=== PATIENT | male | born 1960 | race Caucasian/White ===

== ENCOUNTER 2023-01-28 10:13 | Inpatient (IN) | payer MEDICARE, OTHER ==
[2023-01-28] VITALS (19 sets, daily range): BP systolic 75–130; BP diastolic 48–100; PULSE 54–102; RESP 16–18; O2SAT 93–100
[~2023-01-28] VITALS: Ht 180.3 cm; Wt 68.0 kg
[~2023-01-28 10:13] MED LIST: etomidate 2mg/ml inj. ONE
[2023-01-28] MEDS ORDERED: normal saline 1000ML IV soln IVB ONE (10:40)
[2023-01-28] MEDS ORDERED: propofol 1000mg/100ml bottle 100 ML IV ONE (10:41)
[2023-01-28] MEDS ORDERED: fentaNYL/PF 50MCG/1 ML 2ML syringe IV ONE (10:45)
[2023-01-28] MEDS ORDERED: levetiracetam inj 1,000 MG in normal saline 100ml IV soln 100 ML IV ONE (10:50)
[2023-01-28 11:03] LABS: BASOPHILS # (AUTO) 0.1 X10'3 (0-0.2); BASOPHILS % (AUTO) 1.1 % (0-1); EOSINOPHILS # (AUTO) 0.8 X10'3 (0-0.9); EOSINOPHILS % (AUTO) 7.8 % (0-6); HEMATOCRIT 39.5 % (42.0-52.0); HEMOGLOBIN 12.7 g/dl (14.0-17.9); LYMPHOCYTES # (AUTO) 4.1 X10'3 (1.1-4.8); LYMPHOCYTES % (AUTO) 41.8 % (21-51); MEAN CORPUSCULAR HEMOGLOBIN 33.4 PG (27.0-31.0); MEAN CORPUSCULAR HGB CONC 32.2 g/dL (33.0-36.5); MEAN CORPUSCULAR VOLUME 103.5 FL (78-98); MEAN PLATELET VOLUME 8.3 FL (7.4-10.4); MONOCYTES # (AUTO) 0.8 X10'3 (0-0.9); MONOCYTES % (AUTO) 8.5 % (2-12); NEUTROPHILS % (AUTO) 40.8 % (42-75); PLATELET COUNT 217 X10'3 (140-440); RED BLOOD COUNT 3.82 X10'6 (4.70-6.10); RED CELL DISTRIBUTION WIDTH 14.6 % (11.5-14.5); WHITE BLOOD COUNT 9.9 X10'3 (4.5-11.0)
[2023-01-28 11:06] LABS: ABG BASE EXCESS -15.6 mmol/L (-2.0-2.0); ABG HCO3 11.5 mmol/L (22.0-26.0); ABG PCO2 (T) 29.8 mmHg (35.0-48.0); ABG PH (T) 7.198 (7.340-7.440); ABG PO2 (T) 217.6 mmHg (75.0-100.0); ALLEN'S TEST POSITIVE; FCOHb 0.1 % (0.0-3.9); FMetHb 0.1 % (0.0-1.5); FO2Hb 98.8 % (94-97); MODE VENT - AC; PATIENT TEMPERATURE 35.5; PEEP 5 cm H2O; RESPIRATORY RATE 16 b/min; TIDAL VOLUME 475 mL; TOTAL HEMOGLOBIN 12.8 G/dl (14.0-17.9)
[2023-01-28 11:12] LABS: ALBUMIN 4.1 G/DL (3.4-5.0); ANION GAP 27 (8-16); BILIRUBIN,TOTAL 0.4 MG/DL (0.1-1.0); BLOOD UREA NITROGEN 14 MG/DL (7-18); BUN/CREATININE RATIO 8.8 (10.0-20.0); CALCIUM 9.1 MG/DL (8.5-10.1); CHLORIDE 100 MMOL/L (99-107); GLUCOSE 233 MG/DL (70-104); POTASSIUM 3.1 MMOL/L (3.5-5.1); SODIUM 139 MMOL/L (135-145); TOTAL PROTEIN 8.2 G/DL (6.4-8.2); eCRCL 49 ML/MIN; eGFR 44 ML/MIN
[2023-01-28 11:13] LABS: ALANINE AMINOTRANSFERASE 85 U/L (12-78); ALKALINE PHOSPHATASE 91 IU/L (46-116); ASPARTATE AMINO TRANSFERASE 127 U/L (10-37)
[2023-01-28 11:32] LABS: TOTAL CARBON DIOXIDE 12.4 MMOL/L (24-32)
[2023-01-28 11:33] LABS: LACTIC SEPSIS 12.8 MMOL/L (0.4-2.0)
[2023-01-28 11:37] LABS: ETHANOL < 10 MG/DL (<10)
--- NOTE | 2023-01-28 11:45 | NUR ---
Ux Consultant at bedside discussing plan of care with patient's sister.
[2023-01-28] MEDS ORDERED: acetaminophen 325mg tablet PO PRN (11:55)
[2023-01-28] MEDS ORDERED: potassium Cl 40MEQ/1/2NS 520ml 520 ML IV PRN (11:55)
[2023-01-28] MEDS ORDERED: magnesium hydroxide 30ml (MOM) UD suspension PO PRN (11:55)
[2023-01-28] MEDS ORDERED: mag hydrox/Alum hydrox/simeth 30ml oral suspension PO PRN (11:55)
[2023-01-28] MEDS ORDERED: dextrose 5%-1/2 normal saline 1,000 ML IV SCH (11:55)
[2023-01-28] MEDS ORDERED: potassium Cl 20 mEq SR tablet PO PRN (11:55)
[2023-01-28] MEDS ORDERED: ondansetron/PF 4mg/2ml inj IV PRN (11:55)
[2023-01-28] MEDS ORDERED: magnesium 2GM in 50ml NS 50 ML IV PRN (11:55)
[2023-01-28] MEDS ORDERED: magnesium 4gm in 100ml NS 100 ML IV PRN (11:55)
[2023-01-28] MEDS ORDERED: magnesium Cl slow-release 64mg tablet PO PRN (11:55)
[2023-01-28] MEDS ORDERED: ipratropium/albuterol 3ml nebule NEB PRN (12:05)
[2023-01-28 12:43] LABS: BILIRUBIN,URINE NEGATIVE (Neg); CLARITY,URINE SLIGHTLY CLOUDY (Clear); COLOR,URINE STRAW (Yellow); GLUCOSE, URINE 100 mg/dl (Neg); KETONES,URINE NEGATIVE (Neg); LEUKOCYTE ESTERASE ,URINE NEGATIVE (Neg); NITRITES, URINE NEGATIVE (Neg); OCCULT BLOOD,URINE SMALL (Neg); PH,URINE 5.5 (4.8-8.0); PROTEIN,URINE 30 mg/dl (Neg); UROBILINOGEN,URINE 0.2 E.U/dL (0.2-1.0)
[2023-01-28 12:52] LABS: SQUAMOUS EPITHELIAL CELL,UR FEW /LPF (FEW); UA COLLECTION TYPE FOLEY CATH
[2023-01-28 12:53] LABS: BACTERIA,URINE FEW /HPF (Neg); FINE GRANULAR CAST 0-3 /LPF (NEGATIVE); RBC,URINE 0-2 /HPF (0-2); WBC,URINE 0-4 /HPF (0-4)
[2023-01-28 12:58] LABS: URINE AMPHETAMINE SCREEN NEGATIVE (Neg); URINE BARBITUATE SCREEN NEGATIVE (Neg); URINE BENZODIAZEPINES SCREEN POSITIVE (Neg); URINE CANNABINOID SCREEN NEGATIVE (Neg); URINE COCAINE SCREEN NEGATIVE (Neg); URINE METHADONE SCREEN NEGATIVE (Neg); URINE OPIATE SCREEN NEGATIVE (Neg); URINE PHENCYCLIDINE SCREEN NEGATIVE (Neg)
[2023-01-28] MEDS: FENTANYL-0.9 % NACL/PF 100 ML IV PRN (13:20)
--- NOTE | 2023-01-28 13:22 | NUR ---
WASTED RSI DRUGS W/ FREEDOM MYERS AT BEDSIDE. 150 MG SUCCINYLCHOLINE WASTED AND 30 MG ETOMIDATE WASTED.
[2023-01-28 13:41] LABS: TRIGLYCERIDES 98 MG/DL (20-135)
[2023-01-28 13:56] LABS: PHENYTOIN (DILANTIN) 1.3 UG/ML (10.0-20.0)
[2023-01-28] MEDS: ipratropium/albuterol 3ml nebule NEB SCH ×2 (15:42→20:48)
[2023-01-28] MEDS ORDERED: normal saline 1000ml 1,000 ML IV ONE (16:15)
[2023-01-28 16:31] LABS: MAGNESIUM 2.3 MG/DL (1.5-2.4); PHOSPHORUS 5.7 MG/DL (2.3-4.5)
[2023-01-28] MEDS: heparin, porcine 5000 units/ml vial SQ SCH (16:45)
[2023-01-28] MEDS ORDERED: ASPI-611 PO (16:58)
[2023-01-28] MEDS ORDERED: KEP500T PO (16:58)
[2023-01-28] MEDS ORDERED: OMEP20CA16 PO (16:58)
[2023-01-28] MEDS ORDERED: ATOR20TA66 PO (16:58)
[2023-01-28] MEDS: phenytoin sod 50mg/ml 2ml vial IV SCH (17:09)
[2023-01-28] MEDS: propofol 1000mg/100ml bottle 100 ML IV SCH (18:13)
--- NOTE | 2023-01-28 18:30 | NUR ---
Patient in room ICU 2039. I have received report from Alex LOJA and had the opportunity to ask questions and assume patient care.
[2023-01-28] MEDS: levetiracetam inj 1,000 MG in normal saline 100ml IV soln 100 ML IV SCH (19:50)
[2023-01-28] MEDS: K and/or MAG REPLACEMENT MC SCH (19:58)
[2023-01-28] MEDS ORDERED: levetiracetam inj 1,000 MG in normal saline 100ml IV soln 90 ML IV SCH (20:00)
[2023-01-28] MEDS ORDERED: levetiracetam inj 1,000 MG in normal saline 100ml IV soln 100 ML IV SCH (20:00)
[2023-01-28] MEDS ORDERED: docusate sod 100mg capsule PO SCH (20:00)
[2023-01-28] MEDS ORDERED: dextrose 50%-water 50ml dispensing syringe IV ONE (20:01)
[2023-01-28] MEDS: Dextrose 10%-water IV solution 1,000 ML IV SCH (21:27)
[2023-01-29] VITALS (41 sets, daily range): BP systolic 91–134; BP diastolic 57–80; PULSE 58–78; RESP 10–25; O2SAT 93–100
[2023-01-29] MEDS: phenytoin sod 50mg/ml 2ml vial IV SCH ×4 (00:14→23:37)
[2023-01-29] MEDS: heparin, porcine 5000 units/ml vial SQ SCH ×4 (00:14→23:37)
[2023-01-29] MEDS: ipratropium/albuterol 3ml nebule NEB SCH ×4 (02:50→20:35)
[2023-01-29 03:08] LABS: ABG BASE EXCESS -3.4 mmol/L (-2.0-2.0); ABG HCO3 20.7 mmol/L (22.0-26.0); ABG OXYGEN SATURATION 97.1 % (94-97); ABG PCO2 (T) 34.4 mmHg (35.0-48.0); ABG PH (T) 7.398 (7.340-7.440); ABG PO2 (T) 95.1 mmHg (75.0-100.0); ALLEN'S TEST POSITIVE; FCOHb 0.2 % (0.0-3.9); FHHb 2.9 % (0.0-5.0); FMetHb 0.3 % (0.0-1.5); FO2Hb 96.6 % (94-97); MODE VENT - prvc; PATIENT TEMPERATURE 37.2; PEEP 5 cm H2O; RESPIRATORY RATE 16 b/min; TIDAL VOLUME 475 mL; TOTAL HEMOGLOBIN 11.6 G/dl (14.0-17.9)
--- NOTE | 2023-01-29 06:11 | NUR ---
Problems reprioritized. Patient report given, questions answered & plan of care reviewed with Christine LOJA.
--- NOTE | 2023-01-29 06:13 | NUR ---
Patient in room ICU 2039. I have received report from Alba LOJA and had the opportunity to ask questions and assume patient care.
[2023-01-29] MEDS: FENTANYL-0.9 % NACL/PF 100 ML IV PRN (06:52)
[2023-01-29] MEDS: propofol 1000mg/100ml bottle 100 ML IV SCH ×2 (06:58→12:06)
[2023-01-29] MEDS: levetiracetam inj 1,000 MG in normal saline 100ml IV soln 100 ML IV SCH ×2 (07:48→19:54)
[2023-01-29] MEDS: K and/or MAG REPLACEMENT MC SCH ×2 (08:00→19:55)
[2023-01-29] MEDS: docusate sodium 100mg/10ml UD cup PO SCH ×2 (09:29→19:54)
[2023-01-29 10:06] LABS: BASOPHILS # (AUTO) 0.1 X10'3 (0-0.2); EOSINOPHILS # (AUTO) 0.2 X10'3 (0-0.9); EOSINOPHILS % (AUTO) 3.2 % (0-6); HEMOGLOBIN 11.2 g/dl (14.0-17.9); LYMPHOCYTES % (AUTO) 14.4 % (21-51); MEAN CORPUSCULAR VOLUME 98.9 FL (78-98); MEAN PLATELET VOLUME 7.8 FL (7.4-10.4); MONOCYTES # (AUTO) 0.7 X10'3 (0-0.9); MONOCYTES % (AUTO) 9.4 % (2-12); NEUTROPHILS # (AUTO) 5.1 X10'3 (1.8-7.7); PLATELET COUNT 144 X10'3 (140-440); RED BLOOD COUNT 3.09 X10'6 (4.70-6.10); RED CELL DISTRIBUTION WIDTH 13.7 % (11.5-14.5); WHITE BLOOD COUNT 7.1 X10'3 (4.5-11.0)
--- NOTE | 2023-01-29 10:17 | NUR ---
No seizure per fax Neurology report, DC EEG monitoring per Dr. Colvin, EEG etch paged.Also,MD ordered to try spontaneous and if patient passes may extubate, will follow up on diet order if patient needs tube feeding.We will monitor.
[2023-01-29 10:29] LABS: ALBUMIN 3.2 G/DL (3.4-5.0); ALBUMIN/GLOBULIN RATIO 0.9 (1.1-1.5); ALKALINE PHOSPHATASE 69 IU/L (46-116); ANION GAP 8 (8-16); BILIRUBIN,TOTAL 0.7 MG/DL (0.1-1.0); BLOOD UREA NITROGEN 11 MG/DL (7-18); BUN/CREATININE RATIO 9.4 (10.0-20.0); CALCIUM 7.7 MG/DL (8.5-10.1); CHLORIDE 102 MMOL/L (99-107); CREATININE 1.17 MG/DL (0.60-1.10); MAGNESIUM 1.8 MG/DL (1.5-2.4); SODIUM 133 MMOL/L (135-145); TOTAL CARBON DIOXIDE 23.1 MMOL/L (24-32); TOTAL PROTEIN 6.6 G/DL (6.4-8.2); eCRCL 63 ML/MIN; eGFR 63 ML/MIN
[2023-01-29 10:55] LABS: HEMATOCRIT 30.6 % (42.0-52.0); MEAN CORPUSCULAR HEMOGLOBIN 36.2 PG (27.0-31.0); MEAN CORPUSCULAR HGB CONC 36.6 g/dL (33.0-36.5)
[2023-01-29 11:36] LABS: ALANINE AMINOTRANSFERASE 71 U/L (12-78); GLUCOSE 93 MG/DL (70-104); POTASSIUM 3.8 MMOL/L (3.5-5.1)
--- NOTE | 2023-01-29 11:55 | NUR ---
Patient successfully extubated at 1140, on 3L NC at this time sating 97%,patient able to self suction using right hand.We will continue to monitor.
[2023-01-29] MEDS ORDERED: FLU VACC QS2023-24(6MOS UP)/PF 60 MCG/0.5 ML SYRINGE IM ONE (12:00)
--- NOTE | 2023-01-29 12:00 | NUR ---
Malnutrition consult: Pt reports 14-23 lb wt loss with decreased appetite/PO intake per malnutrition risk screen with RN. Per EMR pt unresponsive and bagged by EMS on admit d/t respiratory arrest. Pt just extubated so unable to obtain information from pt at this time. No scaled wt hx in EMR though current scaled weight is appropriate. Pt seen at bedside, no visible fat or muscle wasting appreciated. Pt documented with flaccid muscle activity though localized to left arm. No documented significant edema. Pt currently lacks a minimum of two criteria for malnutrition though will continue to follow and monitor s/s of malnutrition. Addendum: 01/29/23 at [address] Amended: Links added.
[2023-01-29] MEDS: mineral oil/petrolatum ophthal oint EACHEYE SCH ×2 (12:07→16:58)
[2023-01-29 12:10] LABS: ASPARTATE AMINO TRANSFERASE 109 U/L (10-37)
--- NOTE | 2023-01-29 12:10 | NUR ---
Flu vaccine not available, sent message to pharmacy.
--- NOTE | 2023-01-29 14:35 | NUR ---
PATIENT AGREED TO SHAVING FACIAL HAIR WHEN OFFERED BY RN, ANNIE/SISTER AT BEDSIDE.APPRECIATIVE OF CARE.
--- NOTE | 2023-01-29 14:38 | NUR ---
Patient passed swallow test performed by RN at bedside.Able to tolerate pureed, edentulous, sister to bring in dentures.Episode of trying to clear throat,able to suction self without difficulty.Denies swallowing difficulty in the past, attested by sister.
--- NOTE | 2023-01-29 15:16 | NUR ---
Called Dr. Colvin re: low urine output 20-50ml/hour today,BG 91, still on D10 50ml/hour, low sodium 133. ordered D10NS but not available per pharmacist, ordered NS 85ml/hour on top of D10 50ml/hour.
--- NOTE | 2023-01-29 15:52 | NUR ---
Patient kept saying "help me,i have to pee" multiple times today, scanned patient's bladder, none seen in his bladder.Reminded patient that he has caballero catheter.
[2023-01-29] MEDS: normal saline 1000ml 1,000 ML IV SCH (15:58)
[2023-01-29] MEDS: Dextrose 10%-water IV solution 1,000 ML IV SCH ×2 (16:55→17:27)
--- NOTE | 2023-01-29 17:30 | NUR ---
Dr. Looney/resident at bedside, RN reported him that patient keeps saying he needs to void,MD examining patient's prostate.No reported hx of enlarged prostate.
--- NOTE | 2023-01-29 18:30 | NUR ---
Patient in room ICU 2039. I have received report from Christine LOJA and had the opportunity to ask questions and assume patient care.
[2023-01-30] VITALS (23 sets, daily range): BP systolic 101–146; BP diastolic 68–100; PULSE 59–85; RESP 13–19; TEMP 97.9–98.3; O2SAT 91–98
[2023-01-30] MEDS: mineral oil/petrolatum ophthal oint EACHEYE SCH ×3 (02:00→14:23)
[2023-01-30] MEDS: ipratropium/albuterol 3ml nebule NEB SCH ×4 (02:52→20:53)
[2023-01-30] MEDS: normal saline 1000ml 1,000 ML IV SCH ×2 (03:12→14:24)
--- NOTE | 2023-01-30 06:15 | NUR ---
Problems reprioritized. Patient report given, questions answered & plan of care reviewed with Alma LOJA.
--- NOTE | 2023-01-30 06:30 | NUR ---
Assumed care of pt after report from Alba LOJA.
[2023-01-30 06:52] LABS: BASOPHILS # (AUTO) 0.1 X10'3 (0-0.2); BASOPHILS % (AUTO) 1.2 % (0-1); EOSINOPHILS # (AUTO) 0.4 X10'3 (0-0.9); EOSINOPHILS % (AUTO) 6.4 % (0-6); HEMATOCRIT 31.9 % (42.0-52.0); LYMPHOCYTES # (AUTO) 0.9 X10'3 (1.1-4.8); LYMPHOCYTES % (AUTO) 14.1 % (21-51); MEAN CORPUSCULAR HEMOGLOBIN 33.6 PG (27.0-31.0); MEAN CORPUSCULAR HGB CONC 34.5 g/dL (33.0-36.5); MEAN CORPUSCULAR VOLUME 97.5 FL (78-98); MEAN PLATELET VOLUME 8.3 FL (7.4-10.4); MONOCYTES # (AUTO) 0.7 X10'3 (0-0.9); MONOCYTES % (AUTO) 10.5 % (2-12); NEUTROPHILS # (AUTO) 4.3 X10'3 (1.8-7.7); NEUTROPHILS % (AUTO) 67.8 % (42-75); PLATELET COUNT 157 X10'3 (140-440); RED BLOOD COUNT 3.27 X10'6 (4.70-6.10); RED CELL DISTRIBUTION WIDTH 13.7 % (11.5-14.5); WHITE BLOOD COUNT 6.3 X10'3 (4.5-11.0)
[2023-01-30 07:06] LABS: ANION GAP 8 (8-16); BLOOD UREA NITROGEN 8 MG/DL (7-18); CHLORIDE 106 MMOL/L (99-107); CREATININE 1.14 MG/DL (0.60-1.10); GLUCOSE 88 MG/DL (70-104); POTASSIUM 3.1 MMOL/L (3.5-5.1); SODIUM 138 MMOL/L (135-145); TOTAL CARBON DIOXIDE 24.2 MMOL/L (24-32)
[2023-01-30 07:07] LABS: ALANINE AMINOTRANSFERASE 57 U/L (12-78); ALBUMIN 3.2 G/DL (3.4-5.0); ALKALINE PHOSPHATASE 72 IU/L (46-116); ASPARTATE AMINO TRANSFERASE 121 U/L (10-37); BILIRUBIN,TOTAL 0.6 MG/DL (0.1-1.0); CALCIUM 8.3 MG/DL (8.5-10.1); MAGNESIUM 1.8 MG/DL (1.5-2.4); TOTAL PROTEIN 6.5 G/DL (6.4-8.2); eCRCL 65 ML/MIN; eGFR 65 ML/MIN
[2023-01-30] MEDS ORDERED: pantoprazole 40mg Tablet.DR PO SCH (07:30)
[2023-01-30] MEDS: docusate sodium 100mg/10ml UD cup PO SCH ×2 (07:46→20:06)
[2023-01-30] MEDS: atorvastatin 20mg tablet PO SCH (07:46)
[2023-01-30] MEDS: phenytoin sod 50mg/ml 2ml vial IV SCH (07:47)
[2023-01-30] MEDS: aspirin 81mg tab.chew PO SCH (07:47)
[2023-01-30] MEDS: heparin, porcine 5000 units/ml vial SQ SCH ×3 (07:48→23:43)
[2023-01-30] MEDS: K and/or MAG REPLACEMENT MC SCH ×2 (08:00→20:00)
[2023-01-30] MEDS: phenytoin 50mg chewable tablet PO SCH ×3 (08:00→17:58)
[2023-01-30] MEDS: levetiracetam inj 1,000 MG in normal saline 100ml IV soln 100 ML IV SCH (08:42)
--- NOTE | 2023-01-30 10:32 | NUR ---
RT gave pt a tx, and after discussion dc'd O2 to RA.
[2023-01-30] MEDS: potassium Cl 20 mEq SR tablet PO PRN ×2 (10:44→14:25)
[2023-01-30] MEDS: Dextrose 10%-water IV solution 1,000 ML IV SCH (11:35)
--- NOTE | 2023-01-30 12:56 | NUR ---
Ni neumann dc'd at 1245. Pt has urinated 50 ml clear, yellow urine. He is OOB to chair w/ 1 assist and eating lunch.
--- NOTE | 2023-01-30 14:10 | NUR ---
Pt voided 150ml in urinal.
--- NOTE | 2023-01-30 16:30 | NUR ---
Hospitalist at bedside. Pt voided again.
--- NOTE | 2023-01-30 16:30 | NUR ---
Hospitalist is at bedside. Pt to go to [id number] after report.
[2023-01-30] MEDS ORDERED: lansoprazole 15mg solutab PO SCH (16:32)
--- NOTE | 2023-01-30 16:48 | NUR ---
Report given to OCCUPATIONAL THERAPY MANAGER.
--- NOTE | 2023-01-30 16:50 | NUR ---
Patient in room PCU 3028. I have received report from Alma LOJA and had the opportunity to ask questions and assume patient care.
--- NOTE | 2023-01-30 18:22 | NUR ---
Problems reprioritized. Patient report given, questions answered & plan of care reviewed with Marion Mccabe RN.
--- NOTE | 2023-01-30 18:25 | NUR ---
Patient in room PCU 3028. I have received report from FREEDOM PURDY and had the opportunity to ask questions and assume patient care.
[2023-01-30] MEDS: levetiracetam 100mg/ml oral solution 5ml UD cup PO SCH (20:06)
[2023-01-30] MEDS ORDERED: POTASSIUM BICARB 20meq eff tab 20 MEQ TABLET.EFF PO SCH (23:30)
[2023-01-30] MEDS: POTASSIUM BICARB 20meq eff tab 20 MEQ TABLET.EFF PO SCH (23:54)
[2023-01-31] VITALS (10 sets, daily range): BP systolic 121–129; BP diastolic 82–88; PULSE 70–79; RESP 16–18; TEMP 97.6–98.9; O2SAT 92–97
[2023-01-31] MEDS: mineral oil/petrolatum ophthal oint EACHEYE SCH ×5 (00:46→14:00)
[2023-01-31] MEDS: phenytoin 50mg chewable tablet PO SCH ×2 (00:51→09:02)
[2023-01-31] MEDS: normal saline 1000ml 1,000 ML IV SCH ×2 (02:42→14:24)
[2023-01-31] MEDS: ipratropium/albuterol 3ml nebule NEB SCH ×4 (02:54→15:54)
[2023-01-31 06:15] LABS: CHOL/HDL RATIO 3.3 (0.00-4.99); CHOLESTEROL 264 MG/DL (0-200); HDL CHOLESTEROL 81 MG/DL (35-60); LDL CHOLESTEROL 161 MG/DL (50-100); POTASSIUM 3.4 MMOL/L (3.5-5.1); TRIGLYCERIDES 56 MG/DL (20-135)
[2023-01-31] MEDS: levetiracetam 100mg/ml oral solution 5ml UD cup PO SCH (07:51)
[2023-01-31] MEDS: POTASSIUM BICARB 20meq eff tab 20 MEQ TABLET.EFF PO SCH ×2 (07:51→13:18)
[2023-01-31] MEDS: docusate sodium 100mg/10ml UD cup PO SCH (07:51)
[2023-01-31] MEDS: atorvastatin 20mg tablet PO SCH (07:54)
[2023-01-31] MEDS: heparin, porcine 5000 units/ml vial SQ SCH (07:54)
[2023-01-31] MEDS ORDERED: LIDOcaine 2% (20 mg/ml) 5ml cardiac syringe ONE (08:00)
[2023-01-31] MEDS: K and/or MAG REPLACEMENT MC SCH (08:00)
[2023-01-31] MEDS: aspirin 81mg tab.chew PO SCH (09:01)
[2023-01-31 11:24] LABS: BASOPHILS # (AUTO) 0.1 X10'3 (0-0.2); BASOPHILS % (AUTO) 1.2 % (0-1); EOSINOPHILS # (AUTO) 0.4 X10'3 (0-0.9); EOSINOPHILS % (AUTO) 6.5 % (0-6); HEMATOCRIT 31.8 % (42.0-52.0); HEMOGLOBIN 10.9 g/dl (14.0-17.9); LYMPHOCYTES # (AUTO) 1.2 X10'3 (1.1-4.8); LYMPHOCYTES % (AUTO) 21.6 % (21-51); MEAN CORPUSCULAR HEMOGLOBIN 33.5 PG (27.0-31.0); MEAN CORPUSCULAR HGB CONC 34.4 g/dL (33.0-36.5); MEAN CORPUSCULAR VOLUME 97.1 FL (78-98); MEAN PLATELET VOLUME 7.6 FL (7.4-10.4); MONOCYTES # (AUTO) 0.6 X10'3 (0-0.9); MONOCYTES % (AUTO) 10.3 % (2-12); NEUTROPHILS # (AUTO) 3.5 X10'3 (1.8-7.7); NEUTROPHILS % (AUTO) 60.4 % (42-75); PLATELET COUNT 161 X10'3 (140-440); RED BLOOD COUNT 3.27 X10'6 (4.70-6.10); RED CELL DISTRIBUTION WIDTH 13.6 % (11.5-14.5); WHITE BLOOD COUNT 5.7 X10'3 (4.5-11.0)
[2023-01-31 11:36] LABS: ALANINE AMINOTRANSFERASE 54 U/L (12-78); ALBUMIN 3.4 G/DL (3.4-5.0); ALBUMIN/GLOBULIN RATIO 0.9 (1.1-1.5); ALKALINE PHOSPHATASE 76 IU/L (46-116); ANION GAP 6 (8-16); ASPARTATE AMINO TRANSFERASE 104 U/L (10-37); BILIRUBIN,TOTAL 0.6 MG/DL (0.1-1.0); BLOOD UREA NITROGEN 6 MG/DL (7-18); BUN/CREATININE RATIO 5.9 (10.0-20.0); CALCIUM 8.5 MG/DL (8.5-10.1); CHLORIDE 104 MMOL/L (99-107); CREATININE 1.02 MG/DL (0.60-1.10); GLUCOSE 92 MG/DL (70-104); POTASSIUM 3.4 MMOL/L (3.5-5.1); SODIUM 137 MMOL/L (135-145); TOTAL CARBON DIOXIDE 27.2 MMOL/L (24-32); eCRCL 72 ML/MIN; eGFR 74 ML/MIN
--- NOTE | 2023-01-31 18:13 | NUR ---
Pt transferred to [facility], stable for transfer. PIV discontinued, cannula intact. All belongings taken home by patient. Report called to Nigel LOJA at [facility]. Pt was wheeled down to lobby by [employer] staff and transported by [facility]. Pt appropriate and alert upon transfer.
== END 2023-01-31 17:09 | DRG 208 ==
LOC: ER 10:14 → ED HOLD 12:01 → ICU 2S 14:25 → PCU 3S 01-30 17:30
PROVIDERS: ADMIT Internal Medicine Critical Care Medicine; ATTEND Internal Medicine Critical Care Medicine
PROC: 5A1935Z Respiratory Ventilation, Less than 24 Consecutive Hours (ICD-10-PCS; principal; 2023-01-28)
PROC: 0BH17EZ Insertion of Endotracheal Airway into Trachea, Via Natural or Artificial Opening (ICD-10-PCS; 2023-01-28)
PROC: 4A00X4Z Measurement of Central Nervous Electrical Activity, External Approach (ICD-10-PCS; 2023-01-29)
PROC: 4A00X4Z Measurement of Central Nervous Electrical Activity, External Approach (ICD-10-PCS; 2023-01-30)
DX: J96.00 Acute respiratory failure, unspecified whether with hypoxia or hypercapnia (principal); J98.11 Atelectasis; I69.354 Hemiplegia and hemiparesis following cerebral infarction affecting left non-dominant side; N17.9 Acute kidney failure, unspecified; E87.20 Acidosis, unspecified; C85.90 Non-Hodgkin lymphoma, unspecified, unspecified site; G40.401 Other generalized epilepsy and epileptic syndromes, not intractable, with status epilepticus; E87.6 Hypokalemia; E03.9 Hypothyroidism, unspecified; N18.2 Chronic kidney disease, stage 2 (mild); E16.2 Hypoglycemia, unspecified; Z87.891 Personal history of nicotine dependence; Z92.21 Personal history of antineoplastic chemotherapy; Z79.899 Other long term (current) drug therapy
CPT/HCPCS: 36415; 36600; 70450; 71045; 80053; 80061; 80185; 80305; 80320; 81001; 82140; 82803; 82948; 83605; 83735; 84100; 84132; 84478; 84484; 85018; 85025; 87040; 87070; 87077; 87185; 90686; 92508; 92616; 93005; 94002; 94003; 94640; 94760; 94799; 95720; 96374; 97161; 97530; 99291; A4615; A5200; A6213; A7015; C1758; G0378; J1165; J1644; J1953; J2704; J3010; J3480; J3490; J7030

== ENCOUNTER 2024-02-29 08:51 | Inpatient (IN) | payer BC, MEDICAID ==
[~2024-02-29] VITALS: Ht 172.7 cm; Wt 78.3 kg
[~2024-02-29 08:51] MED LIST changes: +ASPI-611 PO; +ATOR20TA66 PO; +KEP500T PO; +OMEP20CA16 PO; -etomidate 2mg/ml inj. ONE
[2024-02-29] MEDS ORDERED: normal saline 1000ml 1,000 ML IV ONE (09:00)
[2024-02-29] MEDS ORDERED: iohexol 350MG/ML 100ml bottle IV ONE (09:19)
[2024-02-29 09:25] LABS: BASOPHILS # (AUTO) 0.1 X10'3 (0-0.2); BASOPHILS % (AUTO) 0.2 % (0-1); EOSINOPHILS % (AUTO) 0 % (0-6); HEMATOCRIT 43.5 % (42.0-52.0); HEMOGLOBIN 14.5 g/dl (14.0-17.9); LYMPHOCYTES # (AUTO) 0.6 X10'3 (1.1-4.8); LYMPHOCYTES % (AUTO) 2.9 % (21-51); MEAN CORPUSCULAR HEMOGLOBIN 31.4 PG (27.0-31.0); MEAN CORPUSCULAR HGB CONC 33.4 g/dL (33.0-36.5); MEAN PLATELET VOLUME 7.8 FL (7.4-10.4); MONOCYTES # (AUTO) 1.7 X10'3 (0-0.9); NEUTROPHILS # (AUTO) 18.7 X10'3 (1.8-7.7); NEUTROPHILS % (AUTO) 88.9 % (42-75); PLATELET COUNT 253 X10'3 (140-440); RED BLOOD COUNT 4.63 X10'6 (4.70-6.10); RED CELL DISTRIBUTION WIDTH 13.6 % (11.5-14.5); WHITE BLOOD COUNT 21.1 X10'3 (4.5-11.0)
[2024-02-29 09:56] LABS: BILIRUBIN,URINE NEGATIVE (Neg); CLARITY,URINE SLIGHTLY CLOUDY (Clear); COLOR,URINE YELLOW (Yellow); GLUCOSE, URINE NEGATIVE (Neg); KETONES,URINE TRACE mg/dl (Neg); LEUKOCYTE ESTERASE ,URINE SMALL (Neg); NITRITES, URINE POSITIVE (Neg); OCCULT BLOOD,URINE TRACE-INTACT (Neg); PH,URINE 5.5 (4.8-8.0); PROTEIN,URINE TRACE mg/dl (Neg); UROBILINOGEN,URINE 0.2 E.U/dL (0.2-1.0)
[2024-02-29] MEDS: aspirin 81mg tab.chew PO ONE (09:57)
[2024-02-29] MEDS: normal saline 1000ML IV soln IVB ONE ×2 (09:59→12:08)
[2024-02-29] MEDS: normal saline 1000ml 1,000 ML IV ONE (09:59)
[2024-02-29 10:13] LABS: UA COLLECTION TYPE VOIDED
[2024-02-29 10:15] LABS: BACTERIA,URINE 4+ /HPF (Neg); MUCUS STRANDS FEW /LPF (Neg); RBC,URINE 0-2 /HPF (0-2); SQUAMOUS EPITHELIAL CELL,UR FEW /LPF (FEW); TRANSITIONAL EPI CELLS,URINE FEW /HPF; WBC CLUMPS,URINE FEW /HPF (NEGATIVE); WBC,URINE 20-30 /HPF (0-4)
[2024-02-29 10:15] LABS: ALBUMIN 3.6 G/DL (3.4-5.0); ANION GAP 10 (8-16); BLOOD UREA NITROGEN 15 MG/DL (7-18); BUN/CREATININE RATIO 15.3 (10.0-20.0); CALCIUM 8.8 MG/DL (8.5-10.1); CHLORIDE 106 MMOL/L (99-107); CREATININE 0.98 MG/DL (0.60-1.10); ETHANOL < 10 MG/DL (<10); GLUCOSE 135 MG/DL (70-104); MAGNESIUM 1.7 MG/DL (1.5-2.4); POTASSIUM 3.6 MMOL/L (3.5-5.1); PRO BRAIN NATRIURETIC PEPTIDE 280 PG/ML (0-125); SODIUM 139 MMOL/L (135-145); eCRCL 75 ML/MIN; eGFR 77 ML/MIN
[2024-02-29 10:25] LABS: URINE AMPHETAMINE SCREEN NEGATIVE (Neg); URINE BARBITUATE SCREEN NEGATIVE (Neg); URINE BENZODIAZEPINES SCREEN NEGATIVE (Neg); URINE CANNABINOID SCREEN POSITIVE (Neg); URINE COCAINE SCREEN NEGATIVE (Neg); URINE METHADONE SCREEN NEGATIVE (Neg); URINE OPIATE SCREEN NEGATIVE (Neg); URINE PHENCYCLIDINE SCREEN NEGATIVE (Neg)
[2024-02-29] MEDS: PERFLUTREN PROTEIN-A MICROSPHR (Optison) 0.22 MG/ML 3ML VIAL IV ONE (10:35)
[2024-02-29] MEDS: CefTRIAXone 2gm/D5W 50ml BAG 50 ML IV ONE (10:40)
[2024-02-29 11:15] LABS: HEMOGLOBIN A1C 5.4 % (4.5-6.2)
[2024-02-29] MEDS ORDERED: DULO30CA52 PO (11:15)
[2024-02-29] MEDS ORDERED: LEVO200T8 PO (11:15)
[2024-02-29] MEDS ORDERED: MAGN24002 PO (11:15)
[2024-02-29] MEDS ORDERED: MELA1TAB28 PO (11:15)
[2024-02-29] MEDS ORDERED: HYDR-3965 PO (11:19)
[2024-02-29] MEDS ORDERED: MULT-381 PO (11:19)
[2024-02-29] MEDS ORDERED: DIL50T PO (11:19)
[2024-02-29] MEDS ORDERED: magnesium hydroxide 30ml (MOM) UD suspension PO PRN (11:35)
[2024-02-29] MEDS ORDERED: magnesium sulf-water 2g/50mL 50 ML IV PRN (11:40)
[2024-02-29] MEDS ORDERED: potassium Cl 40MEQ/1/2NS 520ml 520 ML IV PRN (11:40)
[2024-02-29] MEDS ORDERED: magnesium sulf-water 4G/100mL 100 ML IV PRN (11:40)
[2024-02-29] MEDS ORDERED: potassium Cl 20 mEq SR tablet PO PRN ×2 (11:40)
[2024-02-29] MEDS ORDERED: magnesium Cl slow-release 64mg tablet PO PRN (11:40)
[2024-02-29] MEDS: normal saline 1000ml 1,000 ML IV SCH (12:07)
[2024-02-29 12:43] LABS: PHENYTOIN (DILANTIN) 7.6 UG/ML (10.0-20.0)
[2024-02-29] MEDS: azithromycin/NS 500mg/250ml 250 ML IV SCH (13:06)
[2024-02-29] MEDS: levetiracetam 250mg tablet PO ONE (13:06)
[2024-02-29] MEDS: duloxetine 30mg CAPSULE.DR PO SCH (14:29)
[2024-02-29] MEDS: ringers solution, lacted 1,000 ML IV ONE (14:45)
[2024-02-29] MEDS: phenytoin 50mg chewable tablet PO SCH (16:00)
[2024-02-29] MEDS: ondansetron/PF 4mg/2ml inj IV ONE (17:49)
[2024-02-29] MEDS ORDERED: ondansetron/PF 4mg/2ml inj IV PRN (18:25)
[2024-02-29] MEDS: K and/or MAG REPLACEMENT MC SCH (19:36)
[2024-02-29] MEDS: phenytoin sod 50mg/ml 2ml vial IV SCH (19:54)
[2024-02-29] MEDS: heparin, porcine 5000 units/ml vial SQ SCH (19:55)
[2024-02-29] MEDS ORDERED: levetiracetam 250mg tablet PO SCH (20:00)
[2024-02-29] MEDS ORDERED: non-formulary drug (Melatonin/Pyridoxine HCl (B6) (Melatonin 3 mg Tablet) 1 TAB) PO SCH (21:00)
[2024-03-01] VITALS (8 sets, daily range): BP systolic 98–128; BP diastolic 65–78; PULSE 77–85; RESP 16–18; TEMP 97.3–98.4; O2SAT 91–99
[2024-03-01 03:27] LABS: APTT 30 SECONDS (22-32); INR 1.1 INR; PROTHROMBIN TIME 11.4 SECONDS (9.0-12.0)
[2024-03-01 04:02] LABS: ALANINE AMINOTRANSFERASE 30 U/L (12-78); ALBUMIN 2.6 G/DL (3.4-5.0); ALBUMIN/GLOBULIN RATIO 0.8 (1.1-1.5); ALKALINE PHOSPHATASE 126 IU/L (46-116); ANION GAP 7 (8-16); ASPARTATE AMINO TRANSFERASE 30 U/L (10-37); BILIRUBIN,TOTAL 0.5 MG/DL (0.1-1.0); BLOOD UREA NITROGEN 13 MG/DL (7-18); BUN/CREATININE RATIO 16.3 (10.0-20.0); CALCIUM 7.7 MG/DL (8.5-10.1); CHLORIDE 109 MMOL/L (99-107); CHOL/HDL RATIO 2.3 (0.00-4.99); CHOLESTEROL 118 MG/DL (0-200); FREE T4 (FREE THYROXINE) 1.14 NG/DL (0.73-1.40); GLUCOSE 110 MG/DL (70-104); HDL CHOLESTEROL 52 MG/DL (35-60); LDL CHOLESTEROL 54 MG/DL (50-100); POTASSIUM 3.7 MMOL/L (3.5-5.1); SODIUM 141 MMOL/L (135-145); THYROID STIMULATING HORMONE 0.12 ulU/ml (0.34-4.50); TOTAL CARBON DIOXIDE 25.3 MMOL/L (24-32); TRIGLYCERIDES 54 MG/DL (20-135); eCRCL 91 ML/MIN; eGFR > 90 ML/MIN
[2024-03-01] MEDS: levoTHYROXINE 75mcg tablet PO SCH (08:30)
[2024-03-01] MEDS: aspirin 81mg, enteric-coated 1 TAB TABLET.DR PO SCH (08:32)
[2024-03-01] MEDS: atorvastatin 20mg tablet PO SCH (08:33)
[2024-03-01] MEDS: pantoprazole 40mg Tablet.DR PO SCH (08:34)
[2024-03-01] MEDS: multivitamins, therapeutics tablet PO SCH (08:35)
[2024-03-01 08:47] LABS: BASOPHILS # (AUTO) 0.1 X10'3 (0-0.2); BASOPHILS % (AUTO) 0.9 % (0-1); EOSINOPHILS % (AUTO) 0.3 % (0-6); HEMATOCRIT 36.5 % (42.0-52.0); HEMOGLOBIN 12.1 g/dl (14.0-17.9); LYMPHOCYTES # (AUTO) 1.4 X10'3 (1.1-4.8); LYMPHOCYTES % (AUTO) 9.5 % (21-51); MEAN CORPUSCULAR HEMOGLOBIN 31.4 PG (27.0-31.0); MEAN CORPUSCULAR HGB CONC 33.2 g/dL (33.0-36.5); MEAN CORPUSCULAR VOLUME 94.6 FL (78-98); MEAN PLATELET VOLUME 8.7 FL (7.4-10.4); MONOCYTES # (AUTO) 1.6 X10'3 (0-0.9); MONOCYTES % (AUTO) 10.6 % (2-12); NEUTROPHILS # (AUTO) 11.8 X10'3 (1.8-7.7); NEUTROPHILS % (AUTO) 78.7 % (42-75); PLATELET COUNT 185 X10'3 (140-440); RED BLOOD COUNT 3.86 X10'6 (4.70-6.10); RED CELL DISTRIBUTION WIDTH 13.6 % (11.5-14.5)
[2024-03-01] MEDS: CefTRIAXone/D5W-Rocephin 1gm 50 ML IV SCH (09:09)
[2024-03-01] MEDS ORDERED: levetiracetam 250mg tablet PO SCH (14:44)
[2024-03-01] MEDS: ringers solution, lacted 1,000 ML IV SCH (16:58)
[2024-03-01] MEDS: levetiracetam 250mg tablet PO SCH (19:14)
[2024-03-01] MEDS: HYDROcodone/acetaminophen 5mg/325mg tablet PO PRN (21:43)
[2024-03-02 02:00] VITALS: BP 128/86; PULSE 86; RESP 16; TEMP 98; O2SAT 93
[2024-03-02 06:00] VITALS: BP 129/83; PULSE 81; RESP 14; TEMP 98.3; O2SAT 95
[2024-03-02 06:48] LABS: APTT 27 SECONDS (22-32); PROTHROMBIN TIME 10.3 SECONDS (9.0-12.0)
[2024-03-02 06:49] LABS: BASOPHILS # (AUTO) 0.1 X10'3 (0-0.2); BASOPHILS % (AUTO) 0.7 % (0-1); EOSINOPHILS # (AUTO) 0.2 X10'3 (0-0.9); EOSINOPHILS % (AUTO) 1.9 % (0-6); HEMATOCRIT 36.5 % (42.0-52.0); HEMOGLOBIN 12.6 g/dl (14.0-17.9); LYMPHOCYTES # (AUTO) 1.3 X10'3 (1.1-4.8); MEAN CORPUSCULAR HEMOGLOBIN 31.8 PG (27.0-31.0); MEAN CORPUSCULAR HGB CONC 34.3 g/dL (33.0-36.5); MEAN CORPUSCULAR VOLUME 92.7 FL (78-98); MEAN PLATELET VOLUME 8.3 FL (7.4-10.4); MONOCYTES % (AUTO) 11.1 % (2-12); NEUTROPHILS # (AUTO) 6.3 X10'3 (1.8-7.7); NEUTROPHILS % (AUTO) 71.3 % (42-75); PLATELET COUNT 181 X10'3 (140-440); RED BLOOD COUNT 3.94 X10'6 (4.70-6.10); RED CELL DISTRIBUTION WIDTH 13.1 % (11.5-14.5); WHITE BLOOD COUNT 8.8 X10'3 (4.5-11.0)
[2024-03-02 06:55] LABS: ALANINE AMINOTRANSFERASE 31 U/L (12-78); ALBUMIN 2.6 G/DL (3.4-5.0); ALBUMIN/GLOBULIN RATIO 0.7 (1.1-1.5); ALKALINE PHOSPHATASE 116 IU/L (46-116); ANION GAP 8 (8-16); ASPARTATE AMINO TRANSFERASE 53 U/L (10-37); BILIRUBIN,TOTAL 0.3 MG/DL (0.1-1.0); BLOOD UREA NITROGEN 9 MG/DL (7-18); BUN/CREATININE RATIO 12.5 (10.0-20.0); CALCIUM 8.2 MG/DL (8.5-10.1); CHLORIDE 109 MMOL/L (99-107); CREATININE 0.72 MG/DL (0.60-1.10); GLUCOSE 94 MG/DL (70-104); POTASSIUM 3.6 MMOL/L (3.5-5.1); SODIUM 143 MMOL/L (135-145); TOTAL CARBON DIOXIDE 25.6 MMOL/L (24-32); TOTAL PROTEIN 6.2 G/DL (6.4-8.2); eCRCL 102 ML/MIN; eGFR > 90 ML/MIN
[2024-03-02] MEDS: phenytoin 50mg chewable tablet PO SCH (07:46)
[2024-03-02 08:38] VITALS: RESP 16
[2024-03-02 10:45] VITALS: BP 117/63; PULSE 92; RESP 16; TEMP 98; O2SAT 95
[2024-03-02 13:50] VITALS: RESP 16; O2SAT 97
== END 2024-03-02 17:56 | DRG 871 ==
LOC: ER 08:52 → ED HOLD 10:37 → ORTHO 4S 03-01 05:34
PROVIDERS: ADMIT Family Medicine; ATTEND Family Medicine
PROC: B3251ZZ Computerized Tomography (CT Scan) of Bilateral Common Carotid Arteries using Low Osmolar Contrast (ICD-10-PCS; principal; 2024-02-29)
PROC: B32G1ZZ Computerized Tomography (CT Scan) of Bilateral Vertebral Arteries using Low Osmolar Contrast (ICD-10-PCS; 2024-02-29)
PROC: B32R1ZZ Computerized Tomography (CT Scan) of Intracranial Arteries using Low Osmolar Contrast (ICD-10-PCS; 2024-02-29)
PROC: B3281ZZ Computerized Tomography (CT Scan) of Bilateral Internal Carotid Arteries using Low Osmolar Contrast (ICD-10-PCS; 2024-02-29)
DX: A41.9 Sepsis, unspecified organism (principal); J18.9 Pneumonia, unspecified organism; I69.354 Hemiplegia and hemiparesis following cerebral infarction affecting left non-dominant side; N12 Tubulo-interstitial nephritis, not specified as acute or chronic; Z85.72 Personal history of non-Hodgkin lymphomas; E03.9 Hypothyroidism, unspecified; G40.409 Other generalized epilepsy and epileptic syndromes, not intractable, without status epilepticus
CPT/HCPCS: 36415; 70450; 70496; 70498; 70551; 71045; 74176; 80048; 80053; 80061; 80185; 80305; 80320; 81001; 82948; 83036; 83605; 83735; 83880; 84145; 84439; 84443; 84484; 85025; 85610; 85730; 87040; 87081; 87088; 87502; 87503; 87811; 92508; 92616; 93005; 93306; 97161; 97530; 99285; A4615; A6258; G0378; J0456; J0696; J1165; J1644; J2405; J7030; J7120; Q9967

== ENCOUNTER 2024-11-09 23:56 | Emergency (ER) | payer BC, MEDICAID ==
[~2024-11-09] VITALS: Ht 180.3 cm; Wt 72.3 kg
[~2024-11-09 23:56] MED LIST changes: +DIL50T PO; +DULO30CA52 PO; +HYDR-3965 PO; +LEVO200T8 PO; +MAGN24002 PO; +MELA1TAB28 PO; +MULT-381 PO
[2024-11-10 00:09] VITALS: TEMP 97.2
[2024-11-10 00:56] LABS: MEAN PLATELET VOLUME 7.8 FL (7.4-10.4); RED CELL DISTRIBUTION WIDTH 14.4 % (11.5-14.5)
[2024-11-10 02:33] LABS: CREATININE 0.74 MG/DL (0.60-1.10); TOTAL CARBON DIOXIDE 25.0 MMOL/L (24-32); eCRCL 104 ML/MIN; eGFR > 90 ML/MIN
--- NOTE | 2024-11-10 03:24 | Physician Documentation ---
History of Present Illness ~ Chief Complaint: Constipation Stated Complaint: CONSTIPATION Time Seen by MD: 03:23 Mode of Arrival: POV HPI Patient presents to the emergency room with five day history of constipation. He does take daily opioids but states he does also take daily softeners as well. He has tried some [id number] remedies without effect. He states it feels like a coconut as stuck up there and it just will not come out. He has not tried to disimpact himself Medication Reconciliation Allergies: Coded Allergies: No Known Allergies (Unverified , 02/29/24) Scheduled Aspirin (Aspir 81), 1 TAB PO DAILY, (Reported) Atorvastatin Calcium (Atorvastatin Calcium), 1 TAB PO DAILY, (Reported) Duloxetine HCl (Duloxetine HCl), 1 CAP PO DAILY, (Reported) Levetiracetam (Keppra), 1 TAB PO Q12H, (Reported) Levothyroxine Sodium (Levothyroxine Sodium), 225 MCG PO DAILY, (Reported) Melatonin/Pyridoxine HCl (B6) (Melatonin 3 mg Tablet), 1 TAB PO HS, (Reported) Multivitamin with Minerals (Daily Vitamin Formula-Minerals), 1 TAB PO DAILY, (Reported) Omeprazole (Omeprazole), 1 CAP PO DAILY, (Reported) Phenytoin Chewable Tab* (Dilantin Chewable Tab*), 2 TAB PO Q8H, (Reported) Scheduled PRN Hydrocodone Bit/Acetaminophen 5/325 MG ([place] 5/325 MG), 1 TAB PO TID PRN PRN for pain, (Reported) Magnesium Hydroxide (Milk Of Magnesia), 1,200 MG PO PRN PRN for constipation, (Reported) Past Medical History Past Medical History: CVA/TIA/Stroke, Seizures, *CANCER*, Lymphoma Other Past Surgical History: Unknown surgical history Past Social History: Unknown social history Review of Systems ROS All review of systems negative except as per HPI Physical Exam Vital Signs: Temperature: 97.2, Source: Temporal, Heart Rate: 62, Respiratory Rate: 16, BP: 114/70, Pulse Oximetry: 99, Weight: 72.300 Oxygen Flow Rate: 0 Progress Results/Orders Results/Orders Orders - SEAN VIRK MD Urinalysis, Cult If Indicated (11/10/24 00:13) Straight Cath For Urine Sample (11/10/24 00:13) Completed Orders - SEAN VIRK MD Cbc/Diff (11/10/24 00:13) BMP (11/10/24 00:13) Lipase (11/10/24 00:13) CMP (11/10/24 00:13) Vital Signs 11/10/24 11/10/24 11/10/24 00:09 02:36 02:38 Temp 97.2 Pulse 84 62 Resp 18 18 16 B/P (MAP) 108/78 114/70 (85) Pulse Ox 95 99 O2 Flow Rate 0 Laboratory Tests Test 11/10/24 00:40 White Blood Count 8.5 Red Blood Count 4.93 Hemoglobin 15.7 Hematocrit 45.9 Mean Corpuscular Volume 93.2 Mean Corpuscular Hemoglobin 31.9 H Mean Corpuscular Hemoglobin Concent 34.2 Red Cell Distribution Width 14.4 Platelet Count 307 Mean Platelet Volume 7.8 Neutrophils (%) (Auto) 62.6 Lymphocytes (%) (Auto) 24.2 Monocytes (%) (Auto) 8.3 Eosinophils (%) (Auto) 4.6 Basophils (%) (Auto) 0.3 Neutrophils # (Auto) 5.3 Lymphocytes # (Auto) 2.1 Monocytes # (Auto) 0.7 Eosinophils # (Auto) 0.4 Basophils # (Auto) 0.0 CBC Comment Sodium Level 144 Potassium Level 3.9 Chloride Level 109 H Carbon Dioxide Level 25.0 Anion Gap 10 Blood Urea Nitrogen 11 Creatinine 0.74 Estimated GFR/1.73 m2 > 90 BUN/Creatinine Ratio 14.9 Glucose Level 96 Calcium Level 9.1 Total Bilirubin 0.3 Aspartate Amino Transf (AST/SGOT) 26 Alanine Aminotransferase (ALT/SGPT) 27 Alkaline Phosphatase 200 H Total Protein 8.1 Albumin 3.5 Globulin 4.6 H Albumin/Globulin Ratio 0.8 L Lipase 41 Chemistry Comments Medical Decision Making Findings Patient presents to the emergency room for evaluation of constipation. He was digitally disimpacted by myself followed by soapsuds enema with good amount of feces expressed. Patient does take daily opioids and Relistor administered as well. The need to increase his constipation medications stay well hydrated discussed. Departure Disposition: HOME / SELF CARE / HOMELESS Impression: Primary Impression: Fecal impaction Additional Impression: Constipation Condition: Improved Discharge Instructions: Fecal Impaction, Constipation, Adult Additional Instructions: Increase water intake. All constant medications are nontoxic therefore in the future increase amount and combination of constipation medications until regular bowel movements. Referrals: NO PRIMARY CARE PROVIDER (PCP) Education Educated: Patient Educated regarding: diagnosis, treatment, need for follow up Signature Scribe Signature: No scribe Attestation: The note accurately reflects work and decisions made by me.Sean Virk MD 11/10/24 03:42 SEAN VIRK MD Nov 10, 2024 03:24
[2024-11-10] MEDS: methylnaltrexone br 12mg/0.6ml inj***SubQ only SQ ONE (04:09)
[2024-11-10 04:16] VITALS: BP 142/88; PULSE 64; RESP 16; O2SAT 99
== END 2024-11-10 04:17 | disposition home or self-care (01) ==
LOC: ER 23:57
DX: K56.41 Fecal impaction (principal); Z86.73 Personal history of transient ischemic attack (TIA), and cerebral infarction without residual deficits; Z79.82 Long term (current) use of aspirin
CPT/HCPCS: 36415; 80053; 83690; 85025; 96372; 99284; J2212; 99283

== ENCOUNTER 2025-01-06 10:31 | Emergency (ER) | payer BC ==
[~2025-01-06] VITALS: Ht 180.3 cm; Wt 74.1 kg
[2025-01-06 10:34] VITALS: TEMP 96.9
--- NOTE | 2025-01-06 11:00 | Physician Documentation ---
History of Present Illness General Chief Complaint: Palpitations Stated Complaint: IRREG HEART RATE Time Seen by MD: 11:00 History of Present Illness Initial Comments Patient is a 64-year-old male who presents to the ER the emergency room with a complaint of palpitations. Patient states proximally an hour ago he had racing heart and a pounding sensation in his left side of his chest. Patient states the episode lasted around 2-3 minutes. Patient's episode resolved prior to EMS arrival. The patient states he has had strokes in the past. Patient states he takes an aspirin. The patient states he has no known cardiac history. Patient denies any history of tachy cardia in the past. The patient's symptoms are mild and improving. Medication Reconciliation Allergies: Coded Allergies: No Known Allergies (Unverified , 01/06/25) Scheduled Aspirin (Aspir 81), 1 TAB PO DAILY, (Reported) Atorvastatin Calcium (Atorvastatin Calcium), 1 TAB PO DAILY, (Reported) Duloxetine HCl (Duloxetine HCl), 1 CAP PO DAILY, (Reported) Levetiracetam (Keppra), 1 TAB PO Q12H, (Reported) Levothyroxine Sodium (Levothyroxine Sodium), 225 MCG PO DAILY, (Reported) Melatonin/Pyridoxine HCl (B6) (Melatonin 3 mg Tablet), 1 TAB PO HS, (Reported) Multivitamin with Minerals (Daily Vitamin Formula-Minerals), 1 TAB PO DAILY, (Reported) Omeprazole (Omeprazole), 1 CAP PO DAILY, (Reported) Phenytoin Chewable Tab* (Dilantin Chewable Tab*), 2 TAB PO Q8H, (Reported) Scheduled PRN Hydrocodone Bit/Acetaminophen 5/325 MG ([place] 5/325 MG), 1 TAB PO TID PRN PRN for pain, (Reported) Magnesium Hydroxide (Milk Of Magnesia), 1,200 MG PO PRN PRN for constipation, (Reported) Past Medical History Past Medical History: CVA/TIA/Stroke, Seizures, *CANCER*, Lymphoma Other Past Surgical History: Unknown surgical history Past Social History: Unknown social history Review of Systems All Other Systems at this time: Reviewed and Negative Physical Exam Physical Exam Vital Signs: Temperature: 96.9, Heart Rate: 68, Respiratory Rate: 18, BP: 132/90, Pulse Oximetry: 97, Weight: 74.100 Oxygen Flow Rate: 0 Progress Results/Orders Results/Orders Orders - OHKARISHMA BAZAN MD Chest,Single View (01/06/25 11:10) Monitor (01/06/25 11:02) Completed Orders - KARISHMA PRIETO MD Cbc/Diff (01/06/25 11:02) PBNP (01/06/25 11:02) Chest,Single View (01/06/25 11:10) BMP (01/06/25 11:02) Hs Troponin I W Calculations (01/06/25 11:02) Vital Signs 01/06/25 01/06/25 01/06/25 10:34 12:00 12:36 Temp 96.9 Pulse 68 78 Resp 18 16 16 B/P (MAP) 132/90 127/82 Pulse Ox 97 94 O2 Flow Rate 0 Laboratory Tests Test 01/06/25 11:18 White Blood Count 6.8 Red Blood Count 4.61 L Hemoglobin 14.8 Hematocrit 44.1 Mean Corpuscular Volume 95.6 Mean Corpuscular Hemoglobin 32.0 H Mean Corpuscular Hemoglobin Concent 33.5 Red Cell Distribution Width 15.1 H Platelet Count 283 Mean Platelet Volume 7.9 Neutrophils (%) (Auto) 64.7 Lymphocytes (%) (Auto) 22.0 Monocytes (%) (Auto) 8.1 Eosinophils (%) (Auto) 3.7 Basophils (%) (Auto) 1.5 H Neutrophils # (Auto) 4.4 Lymphocytes # (Auto) 1.5 Monocytes # (Auto) 0.5 Eosinophils # (Auto) 0.2 Basophils # (Auto) 0.1 CBC Comment Sodium Level 145 Potassium Level 4.5 Chloride Level 111 H Carbon Dioxide Level 28.0 Anion Gap 6 L Blood Urea Nitrogen 15 Creatinine 0.75 Estimated GFR/1.73 m2 > 90 BUN/Creatinine Ratio 20.0 Glucose Level 88 Calcium Level 8.3 L Troponin I High Sensitivity 5 Pro-B-Type Natriuretic Peptide 71 Albumin 3.1 L Chemistry Comments EKG/XRAY/CT/US/VASC/MRI Chest X-Ray : Additional Comments Patient: DILCIA SMALLWOOD V Medical Record: [id number] [facility] : 1960, Age: 64 Sex: Male Location: ER Patient Status: REG ER Service Date/Time: 01/06/25/ 1110 Ordering Physician: KARISHMA PRIETO MD Exam: CHEST,SINGLE VIEW CHEST RADIOGRAPH Indication: CP Technique: Single frontal view of the chest was obtained Comparison: DI CHEST,SINGLE VIEW on DOS: 03/01/24, DI CHEST,SINGLE VIEW on DOS: 02/29/24, DI CHEST,SINGLE VIEW on DOS: 01/29/23, DI CHEST,SINGLE VIEW on DOS: 01/28/23 FINDINGS: Lines and Tubes: Right chest port tip in the cavoatrial junction Lungs: No focal consolidation. Pleura: No effusion. No pneumothorax. Cardiomediastinal contours: Unremarkable Bones: No acute osseous abnormality. IMPRESSION: No acute cardiopulmonary disease. Electronically Signed by:FRAN MOSES MD Date & Time: 01/06/251124 Dictated by: FRAN MOSES MD Dictation date and time: 01/06/251124 Primary Care Provider: NO PRIMARY CARE PROVIDER Medical Decision Making Findings The patient is a 64-year-old male who presented to the emergency room with 2 minutes to 3 minutes of what he describes as tachycardia and palpitations. The episode was self-limited the patient's cardiac workup he is unremarkable here he has a normal-appearing EKG and nonischemic workup with negative troponins. The patient's chest x-ray was interpreted by me as showing a normal cardiac silhouet te normal mediastinum and normal lung de leon it was interpreted as showing no acute disease process I have reviewed the radiologist's interpretation as well the patient's EKG was interpreted by me the patient will be discharged has he is in a sinus rhythm and comfortable he has been advised to return if he develops any worsening of symptoms and to follow up with Cardiology as an outpatient he states he does see Dr. Dacosta. Prior hospitalizations were reviewed patient's pulse oximetry was interpreted as normal and adequate in his environmental monitoring specialist was interpreted as a sinus rhythm Departure Time of Disposition: 12:22 Disposition: 01 HOME / SELF CARE / HOMELESS Impression: Primary Impression: Palpitations Discharge Instructions: Palpitations, [id number] Additional Instructions: Follow up with your healthcare providers soon as possible. Return Referrals: NO PRIMARY CARE PROVIDER (PCP) Signature Scribe Signature: no scribe Attestation: The note accurately reflects work and decisions made by me.Karishma Prieto MD 01/07/25 09:03 AKRISHMA PRIETO MD Jan 06, 2025 11:00
--- NOTE | 2025-01-06 11:27 | RADIOLOGY REPORT ---
CHEST RADIOGRAPH Indication: CP Technique: Single frontal view of the chest was obtained Comparison: DI CHEST,SINGLE VIEW on DOS: 03/01/24, DI CHEST,SINGLE VIEW on DOS: 02/29/24, DI CHEST,SINGLE VIEW on DOS: 01/29/23, DI CHEST,SINGLE VIEW on DOS: 01/28/23 FINDINGS: Lines and Tubes: Right chest port tip in the cavoatrial junction Lungs: No focal consolidation. Pleura: No effusion. No pneumothorax. Cardiomediastinal contours: Unremarkable Bones: No acute osseous abnormality. IMPRESSION: No acute cardiopulmonary disease.
[2025-01-06 11:34] LABS: MEAN PLATELET VOLUME 7.9 FL (7.4-10.4); RED CELL DISTRIBUTION WIDTH 15.1 % (11.5-14.5)
[2025-01-06 11:56] LABS: CREATININE 0.75 MG/DL (0.60-1.10); PRO BRAIN NATRIURETIC PEPTIDE 71 PG/ML (0-125); TOTAL CARBON DIOXIDE 28.0 MMOL/L (24-32); eCRCL 104 ML/MIN; eGFR > 90 ML/MIN
[2025-01-06 12:36] VITALS: BP 127/82; PULSE 78; RESP 16; O2SAT 94
== END 2025-01-06 12:37 | disposition home or self-care (01) ==
LOC: ER 10:32
DX: R00.2 Palpitations (principal); Z86.73 Personal history of transient ischemic attack (TIA), and cerebral infarction without residual deficits; Z79.82 Long term (current) use of aspirin; Z79.899 Other long term (current) drug therapy
CPT/HCPCS: 36415; 71045; 80048; 83880; 84484; 85025; 99284